=== PATIENT | female | born 1985 | race African-American/Black ===

== ENCOUNTER 2017-01-20 18:01 | Inpatient (IN) | payer OTHER ==
[~2017-01-20] VITALS: Ht 160 cm; Wt 59.0 kg
[~2017-01-20 18:01] MED LIST: ALPRAZOLAM2 M2 PO; ARIPIPRAZOLE5 M1; CYCLOBENZAPRINE10 M1 PO; DEXTROAMP-AMPHE30 MG PO; NASONEX17 GM NASB; SAPHRIS5 M1 SL; ZOLPIDEM TARTRA10 M1 PO
--- NOTE | 2017-01-20 18:32 | ED ANIMAL BITE/WOUND CHECK ---
History of Present Illness General Chief Complaint: Hand or Wrist Injury Stated Complaint: PT POSSIBLE CELLULITIS OF THE RT ARM Source: patient, family Exam Limitations: no limitations Vital Signs & Intake/Output Vital Signs & Intake/Output Vital Signs Date Time Temp Pulse Resp B/P B/P Pulse O2 O2 Flow FiO2 Mean Ox Delivery Rate 01/21 2128 97.8 95 18 132/91 97 Room Air 01/20 1858 98 Room Air 01/20 1813 98.1 88 22 99/62 98 Allergies Coded Allergies: doxycycline (SEVERE VOMITING 01/20/17) gluten (NAUSEA 01/20/17) Triage Note: PER PT BIT BY CAT, AT WORK, TUESDAY, BEEN ON ANTIBIOTICS, AUGMENTIN, SEEN AT URGENT CARE AND SENT HERE. RT HAND SWOLLEN RED.,SL WARM Triage Nurses Notes Reviewed? yes : No Patient currently breastfeeds: No HPI: Patient is a 31-year-old female presents complaining of an infection to the dorsal surface of her right hand. 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 Patient was placed on Augmentin Tuesday afternoon. Patient reports that pain, redness, swelling have increased since then. The cat is up-to-date with its rabies vaccinations. Patient received a tetanus immunization 2 days ago. Pain is moderate, worsens with palpation. Patient is right-hand dominant. Patient denies fevers, purulent drainage, axillary lymphadenopathy. (SHARLA MEADE,JESSICA) Reconcile Medications Alprazolam 2 MG TABLET 1 TAB PO TIDPRN PRN ANXIETY (Reported) Amoxicillin/Clavulanate Potass (Amox-Clav 875-125 MG Tablet) 875 MG-125 MG TABLET 1 TAB PO BID ANTIBIOTIC (Reported) Dextroamphetamine/Amphetamine (Dextroamp-Amphetamin 30 MG Tab) (Unknown Strength ) TABLET (Unknown Dose) UNKNOWN (Reported) Zolpidem Tartrate 10 MG TABLET 1 TAB PO QPM PRN SLEEP (Reported) (TAMMIE LEGER) Past History Travel History Traveled to [place] past 21 day No Medical History Any Pertinent Medical History? 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 No (JESSICA ROSS) Review of Systems Review of Systems Constitutional: Denies: chills, fever. EENTM: Reports: no symptoms. Respiratory: Denies: cough, short of breath. Cardiovascular: Denies: chest pain. GI: Denies: nausea, vomiting. Musculoskeletal: Reports: see HPI. Skin: Reports: see HPI. Neurological/Psychological: Denies: numbness, paresthesia. Hematologic/Endocrine: Denies: bruising, bleeding. Immunologic/Allergic: Denies: splenectomy. (JESSICA ROSS) Physical Exam Physical Exam General Appearance: well developed/nourished, alert, awake Head: atraumatic, normal appearance Eyes: Bilateral: normal appearance, PERRL, EOMI. Ears, Nose, Throat: normal pharynx, normal ENT inspection, hearing grossly normal Neck: normal inspection, supple, full range of motion Respiratory: normal breath sounds, chest non-tender, no respiratory distress, lungs clear Cardiovascular: regular rate/rhythm Peripheral Pulses: 2+ radial (R) Back: normal inspection, normal range of motion Extremities: 2 2-3 MILLIMETER PUNCTURE WOUNDS TO THE DORSAL SURFACE OF THE RIGHT HAND. eRYTHEMA, MODERATE SWELLING, WARMTH TO THE DORSAL SURFACE OF THE RIGHT HAND THAT EXTENDS JUST PROXIMAL TO THE WRIST. nO LYMPHANGITIS. fULL ACTIVE RANGE OF MOTION OF FINGERS AND HAND. sENSATION AND CAPILLARY REFILL NORMAL. Neurologic/Psych: no motor/sensory deficits, awake, alert, oriented x 3, normal gait, normal mood/affect Skin: SEE EXTREMITIES EXAM Lymphatic: NO PALPABLE AXILLARY ADENOPATHY (JESSICA ROSS) Progress Differential Diagnosis: abscess, cellulitis, tenosysnovitis, foreign body Plan of Care: Orders Procedure Date/time Status Regular Diet 01/21 B Active CBC WITHOUT DIFFERENTIAL 01/21 0600 Active Weight 01/20 2200 Active OXYGEN SETUP (GEN) 01/21 2128 Active Saline Lock 01/21 2128 Active Admit to inpatient 01/21 2128 Active Vital Signs 01/21 2128 Active Activity/Ambulation 01/21 2128 Active Pathway - chart 01/21 2120 Active House Staff 01/21 2120 Active Patient Data 01/21 2120 Active Code Status 01/21 2120 Active Patient Data 01/20 2039 Active Intake & Output 01/20 1843 Active BLOOD CULTURE 01/20 1837 Active LACTIC ACID 01/20 1837 Complete CBC WITHOUT DIFFERENTIAL 01/20 1837 Complete BASIC METABOLIC PANEL 01/20 1837 Complete VTE Mechanical Prophylaxis 01/20 UNK Active Current Medications Sig/Divya Start time Last Medication Dose Stop Time Status Admin Enoxaparin Sodium 40 MG DAILY 01/21 2112 AC (Lovenox) Laboratory Tests 01/20/172136: Lactic Acid Cancelled 01/20/171851: Anion Gap 13, Estimated GFR > 60, BUN/Creatinine Ratio 20.0, Glucose 85, Lactic Acid 0.6 L, Calcium 9.3, CBC w Diff NO MAN DIFF REQ, RBC 5.21, MCV 76.7 L, MCH 24.5 L, RDW 15.1 H, MPV 8.2, Gran % 66.2, Lymphocytes % 26.2, Monocytes % 6.9, Eosinophils % 0.7, Basophils % 0 L, Absolute Granulocytes 5.7, Absolute Lymphocytes 2.3, Absolute Monocytes 0.6, Absolute Eosinophils 0.1, Absolute Basophils 0, PUBS MCHC 31.9 L Microbiology 01/21 1856 BLOOD: Blood Culture - RECD 01/21 1852 BLOOD: Blood Culture - RECD Diagnostic Imaging: Viewed by Me: Radiology Read. Discussed w/RAD: Radiology Read. 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 Patient will require IV antibiotics. If symptoms don't improve consider plastics consultation. Patient will do poorly as an outpatient. Patient has worsening symptoms and pain and swelling. (TAMMIE LEGER) PA/FLOOR FINISHER Co-Sign Statement Statement: ED Attending supervision documentation- x I saw and evaluated the patient. I have also reviewed all the pertinent lab results and diagnostic results. I agree with the findings and the plan of care as documented in the PA's/FLOOR FINISHER's documentation. [] I have reviewed the ED Record and agree with the PA's/FLOOR FINISHER's documentation. [] Additions or exceptions (if any) to the PAs/FLOOR FINISHER's note and plan are summarized below: [] (KAUR SALMON,LORRIE)
[2017-01-20 19:05] LABS: ABSOLUTE BASOPHIL COUNT 0 /CUMM (0.0-0.2); ABSOLUTE EOSINOPHIL COUNT 0.1 /CUMM (0.0-0.7); ABSOLUTE GRANULOCYTE CT 5.7 /CUMM (1.4-6.5); ABSOLUTE LYMPH COUNT 2.3 /CUMM (1.2-3.4); ABSOLUTE MONOCYTE COUNT 0.6 /CUMM (0.10-0.60); BASOPHIL % 0 % (0.0-2.0); EOSINOPHIL % 0.7 % (0-5); GRANULOCYTE % 66.2 % (42.2-75.2); MEAN CORPUSCULAR HGB 24.5 PG (27.0-31.0); MEAN CORPUSCULAR HGB CONC 31.9 G/DL (33.0-37.0); MEAN CORPUSCULAR VOLUME 76.7 FL (81.0-99.0); MEAN PLATELET VOLUME 8.2 FL (7.4-10.4); PLATELET COUNT 197 /CUMM (130-400); RBC DISTRIBUTION WIDTH 15.1 % (11.5-14.5); RED BLOOD CELL CT 5.21 /CUMM (4.20-5.40); WHITE BLOOD CELL COUNT 8.7 /CUMM (4.8-10.8)
--- NOTE | 2017-01-20 19:10 | RADIOLOGY REPORT ---
EXAMINATION: XR HAND, RIGHT CLINICAL INFORMATION: Cat bite dorsal hand with cellulitis. COMPARISON: None TECHNIQUE: AP, lateral, and oblique views of the right hand. FINDINGS: Bone mineral density is maintained without evidence of fracture or dislocation. No focal osseous lesions are seen. Joint space is maintained without productive or erosive changes. There is dorsal soft tissue prominence without evidence of percutaneous emphysema or radiopaque foreign bodies. IMPRESSION: Soft tissue prominence otherwise unremarkable.
[2017-01-20] MEDS ORDERED: DEXTROAMP-AMPHE30 MG PO (20:07)
[2017-01-20] MEDS ORDERED: AMOX-CLAV 875-1 EACH PO (20:07)
[2017-01-20] MEDS ORDERED: ALPRAZOLAM2 M2 PO (20:08)
--- NOTE | 2017-01-20 20:30 | History & Physical ---
XOCHITL SALMON,ORTIZ 01/20/172028: General Information and HPI Source of Information: patient Exam Limitations: no limitations History of Present Illness: Ms. Abdalla is a healthy 31-year-old lady with PMH significant for asthma, depression/anxiety and previous substance abuse, last admitted for SI in February 2016, who presents with worsening erythema and swelling in the right hand. 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 Patient started taking Augmentin on that same day and has been taking it twice a day but the swelling and redness continued to worsen and extend from the hand up to the wrist, limiting the movement of her hand. She also endorses tenderness and paresthesia in the right hand up to the mid forearm. She pretented the urgen care clinic earlier today and was prompted to come into ER. Patient is up to date with all immunizations and received a Tdab booster at the urgent clinic 2 days ago. She also reports the cat is up to date with rabies vaccinations. On ROS patient reports one episode of watery diarrhea today and chills for 2 days. Also endorsing sore throat and diziness. No fevers. Denies any chest pain, dyspnea, palpitations, n/v/c, abdominal pain, urinary sxs. On SH patient is a current smoker (1/2 pack for 10 years). She currently denies any alcohol or illicit drug use but per the previous records from last year she does have a h/o polysubstance abuse. FH only remarkable for Parkinson's in father. In ED patient was started on IV Unasyn. PCP - Dr. Davies Full code. 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 Home Smoking Status: Current Everyday Smoker ETOH Use: denies use Illicit Drug Use: denies illicit drug use Review of Systems Review of Systems Constitutional: Reports: see HPI. Exam & Diagnostic Data Last 24 Hrs of Vital Signs/I&O Vital Signs Date Time Temp Pulse Resp B/P B/P Pulse O2 O2 Flow FiO2 Mean Ox Delivery Rate 01/20 1858 98 Room Air 01/20 181 98.1 88 22 99/62 98 Physical Exam General Appearance Alert, Oriented X3, Cooperative, No Acute Distress Skin 2-3mm puncture wounds in dorsal side of distal RUE with erythema, edema and warmth to touch. HEENT Atraumatic, PERRLA, EOMI, Mucous Membr. moist/pink Neck Supple, No JVD, No LAD Cardiovascular Regular Rate, Normal S1, Normal S2, No Murmurs, Gallops, Rubs Lungs Decreased breath sounds and wheezing Abdomen Normal Bowel Sounds, Soft, No Hepatospenomegaly Neurological Normal Gait, Normal Speech, Sensation Intact, Cranial Nerves 3-12 NL, Strength 3/5 in right fingers due to pain and swelling, Paresthesia in RUE from the hand to mid-forearm Extremities Puncture wound in the right hand with erythema, swelling and warmth , Limited ROM in right digits due to edema and ternderness Vascular Normal Pulses, Pulses Symmetrical Last 24 Hrs of Labs/Jordy: Laboratory Tests 01/20/171851: Anion Gap 13, Estimated GFR > 60, BUN/Creatinine Ratio 20.0, Glucose 85, Lactic Acid 0.6 L, Calcium 9.3, CBC w Diff NO MAN DIFF REQ, RBC 5.21, MCV 76.7 L, MCH 24.5 L, RDW 15.1 H, MPV 8.2, Gran % 66.2, Lymphocytes % 26.2, Monocytes % 6.9, Eosinophils % 0.7, Basophils % 0 L, Absolute Granulocytes 5.7, Absolute Lymphocytes 2.3, Absolute Monocytes 0.6, Absolute Eosinophils 0.1, Absolute Basophils 0, PUBS MCHC 31.9 L Microbiology 01/21 1856 BLOOD: Blood Culture - RECD 01/21 1852 BLOOD: Blood Culture - RECD Assessment/Plan Assessment: Ms. Abdalla is a healthy 31-year-old lady with no significant PMH, previously admitted for SI in February 2016, who presents with worsening erythema and swelling in the right hand, cocerning for cellulitis unresponsive to Augmentin. # Cellulitis in RUE * Admit to * Vitals per protocol * Cont IV Unasyn * Gentle IV hydration * Tylenol PRN for fever and mild pain # Asthma Although patient denies dyspnea there is significant wheezing diffusely on lung exam. * IV Solumedrol 125mg followed by prednisone taper tomorrow * TRC neb tx * Oxygen support as needed to maintain saturation > 92% * *Albuterol upon discharge* # Diarrhea * Check for c. diff * Immodium for persistent diarrhea # Tobacco depedence * Nicotine patch * Smoking cessation counseling # Depression/ADHD/insomnia * Cont Xanax, Adderall, and Zolpidem PRN at home doses - Regular diet - Mild pain pathway - DVTppx with Lovenox - Full code. As Ranked By This Provider Problem List: 1. Cellulitis of right hand Core Measures/Miscellaneous Acute Coronary Syndrome ACS Diagnosis: No Cerebrovascular Accident CVA/TIA Diagnosis: No Congestive Heart Failure CHF Diagnosis: No Venous Thromboembolism VTE Risk Factors: Smoking No Mech VTE prophylaxis d/t: No contraindications No VTE Pharm Prophylaxis d/t: No contraindications VTE Diagnosis: No VTE Type: NONE VTE Confirmed by (Test): NONE Severe Sepsis Severe Sepsis Present: No Septic Shock Septic Shock Present: No Miscellaneous Documentation Attending Case Discussed With: DR. SOOD Primary Care Physician: ADALI DAVIES MD Patient sees these Specialists PCP Level of Patient Care: General Medicine CHLOE WHITE 01/20/172041: General Information and HPI Allergies/Medications Home Med list Alprazolam 2 MG TABLET 1 TAB PO TIDPRN PRN ANXIETY (Reported) Amoxicillin/Clavulanate Potass (Amox-Clav 875-125 MG Tablet) 875 MG-125 MG TABLET 1 TAB PO BID ANTIBIOTIC (Reported) Dextroamphetamine/Amphetamine (Dextroamp-Amphetamin 30 MG Tab) (Unknown Strength ) TABLET 30 MG PO BID CONCENTRATION (Reported) Zolpidem Tartrate 10 MG TABLET 1 TAB PO QPM PRN SLEEP (Reported) Resident Review Statement Resident Statement: examined this patient, discussed with actuarial intern, agreed with actuarial intern Other Findings: Ms. Abdalla is a 31 year old female with no significant past medical history of exercise induced asthma who presents to the ED with complaints of right hand swelling and pain. 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 She states she went to urgent care outpt and was treated with augmentin PO. She has subsequently developed worsening swelling, a/w 1 day of chills and some surrounding paresthesias. Agree with YARITZA, SHx, FHx, and PE above. Labs reviewed. Problem List/Assessment and plan Cellulitis * Admit to for treatment of cellulitis failed outpt treatment of augmentin * We will start IV Unasyn for coverage of pasteurella mostly with added anaerobic coverage for bacteroides and fusobacteria at a dose of 1.5g q6h. * I dont believe there is an underlying abscess as there was no fluctuation on exam, however if her clinical presentation doesnt improve, consider a CT for further evaluation, and possible surgical consult for I/D. No subcutaneous emphysema noted on XR of the hand. No axillary/cervical LN enlargement noted. * Additionally, if the patient doesnt show clinical improvement, consideration for osteomyelitis, tenosynovitis and septic arthritis must be taken into accound , and an MRI should be ordered. * We will repeat CBC in the am to evaluate for leukocytosis Asthma and tobacco use * hx of exercise-induced asthma with a significant family history of asthma in her brother. * She also has a 67-[id number]-cyyx smoking history. * She was counseled extensively on smoking cessation * She will need proper pulmonology outpatient evaluation and medication. * We will give total respiratory care and nebulizers at the moment with a goal saturation of about 92%. * She was given IV Solu-Medrol, 125 mg in the emergency department. * We will dose with a rapid prednisone taper starting tomorrow morning, 40 mg followed by 30 mg followed by 20 mg and then 10. * Please ensure that the patient has a primary care referral as well as a pulmonology referral and a short acting beta agonist inhaler at the time of discharge. FULL CODE Regular diet pain path lovenox for dvt ppx BARRIE SALMON, [facility] 01/21/17 0251: Attending MD Review Statement Attending Statement Attending MD Statement: examined this patient, discuss w/resident/PA/EMPLOYMENT OFFICE CLERK, agreed w/resident/PA/EMPLOYMENT OFFICE CLERK Attending Assessment/Plan: 31 yo F smoker, with h/o exercise-induced asthma, anxiety, depression, previous polysubstance abuse, is here with right hand cellulitis after a cat bite and failing outpatient antibiotic therapy. 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 She was seen at an Urgent care center, started on Augmentin, but the swelling and erythema got worse so she came to the ER. She has also been suffering from sore throat, cough, URI symptoms for over 2 weeks, with associated dyspnea and wheezing. Patient reports being diagnosed with exercise-induced asthma at age of 15 and was given albuterol inhaler, but never really followed up with Field Pipe Lines Supervisor. She has had recent recurrent episodes of bronchitis for which she has been prescribed albuterol. Vitals stable except for borderline BP that has improved. Chest b/l prolonged expiratory wheezes with reduced air entry. No cervical or axillary lymphadenopathy. Right hand dorsum: puncture jaye from catbite with surrounding warmth, erythema and swelling extending upto the wrist and base of the fingers. ROM of fingers and wrist is slightly limited. Pulses well felt. Cat scratch adam noted to left hand and forearm. Labs unremarkable. X ray: dorsal soft tissue prominence, no foreign bodies. 1. Right hand catbite cellulitis, failed outpatient therapy. GM admit, elevate right hand, blood cultures, IV Unasyn. If swelling does not improve, will consider Plastic surgery eval. Neurovascular checks. Tetanus vaccine given. 2. Asthma exacerbation in the setting of acute bronchitis. TRC nebs, IV solumedrol given in ER, will initiate rapid prednisone taper from AM. Peak flow measurements. Mucinex BID. Smoking cessation counseling done. Nicotine patch. Please ensure patient is discharged with an albuterol inhaler prescription. DVT ppx Lovenox. Full code.
[2017-01-20 23:15] VITALS: BP 130/90
--- NOTE | 2017-01-21 02:53 | Admission Certification ---
Admission Certification Certification Statement - As attending physician, I certify that at the time of - admission, based on clinical presentation, severity of - symptoms, need for further diagnostic testing and - therapeutic interventions, and risk of adverse outcomes - without in-hospital treatment, in my clinical assessment, - this patient requires an acute hospital stay for a minimum - of two nights or longer. I have also considered psychsocial - factors such as support system, advanced age, financial - issues, cognitive issues, and failed out-patient treatments, - past re-admission history, safety of patient, and lack of - compliance as applicable. Specific rationale supporting this admission is: Right hand cellulitis s/p cat bite, failed outpatient therapy. Asthma exacerbation.
[2017-01-21 06:30] VITALS: BP 116/60
--- NOTE | 2017-01-21 06:52 | PN- Housestaff ---
SHELIA SALMON,PERI 01/21/17 0651: Subjective Follow-up For: cellulitis Subjective: Pt was seen this morning after having received about 3 doses of unasyn. she reports feeling a lot better and her right hand looks one thousand times better. she would like to go home if possible. there was still some swelling and redness over the dorsum of the right hand, plastic surgery has been contacted to see the patient prior to discharge. she reports some numbness and tingling, that is improved. yesterday it was affecting up to her right elbow, early this morning, it only involved dorsum of the right hand, then later in the morning, she reports it on the 4th and 5th finger. she has chronic cough with tao sputum that has been going on for 2-3 weeks. prior to that, she has had dry cough. she knows that she should stop smoking and is working on it. she has been afebrile with no white count. if she is cleared by plastic surgery, she might be discharged today on clindamycin. Review of Systems Constitutional: Reports: see HPI. Objective Last 24 Hrs of Vital Signs/I&O Vital Signs Date Time Temp Pulse Resp B/P B/P Pulse O2 O2 Flow FiO2 Mean Ox Delivery Rate 01/21 1105 Room Air Room Air 01/21 0800 Room Air 01/21 0630 98.4 67 20 116/60 97 Room Air 01/21 0000 Room Air 01/20 2315 98.2 71 18 130/90 95 Room Air 01/20 2244 Room Air 01/20 2128 97.8 95 18 132/91 97 Room Air 01/20 1858 98 Room Air 01/20 1813 98.1 88 22 99/62 98 Intake & Output 01/21 1600 01/21 0800 01/21 0000 Intake Total 500 Output Total Balance 500 Intake, IV 200 Intake, Oral 300 Patient 58.967 kg Weight Weight Reported by Patient Measurement Method Physical Exam General Appearance: Alert, Oriented X3, Cooperative, No Acute Distress Skin: redness and swelling over dorsum of the right hand HEENT: Atraumatic Cardiovascular: Regular Rate, Normal S1, Normal S2, No Murmurs Lungs: Clear to Auscultation, Normal Air Movement Abdomen: Normal Bowel Sounds, Soft, No Tenderness Neurological: Normal Speech Extremities: able to make a soft fist (improved since yesterday) Current Medications: Current Medications Sig/Divya Start time Last Medication Dose Route Stop Time Status Admin Acetaminophen 650 MG Q6P PRN 01/21 0015 AC PO Acetaminophen 1,000 MG Q6P PRN 01/21 0015 AC IV Albuterol Sulfate 2 PUF Q4P PRN 01/21 1130 AC INH Alprazolam 2 MG TID PRN 01/21 0015 AC 01/21 PO 01/28 0014 0839 Ampicillin Sodium/ 1,500 MG Q6 01/21 0009 AC 01/21 Sulbactam Sodium IV 1118 Sodium Chloride 100 ML Ampicillin Sodium/ 0 .STK-MED ONE 01/20 1859 DC Sulbactam Sodium .ROUTE Ampicillin Sodium/ 3,000 MG ONCE ONE 01/20 1845 DC 01/20 Sulbactam Sodium IV 01/20 1914 1917 Sodium Chloride 100 ML Enoxaparin Sodium 40 MG DAILY 01/20 2112 AC 01/21 SC 0832 Guaifenesin 600 MG Q12 01/21 1000 AC 01/21 PO 0833 Lactobacillus 1 CAP BID 01/21 1030 AC Acidophilus PO Methylphenidate HCl 15 MG TID 01/21 1000 AC 01/21 PO 0833 Methylprednisolone 0 .STK-MED ONE 01/20 2206 DC .ROUTE Methylprednisolone 125 MG ONCE ONE 01/20 2200 DC 01/20 IV 01/20 2201 2206 Nicotine 14 MG DAILY 01/21 1000 AC 01/21 TOP 0833 Nicotine 7 MG DAILY 01/21 0200 DC 01/21 TOP 0235 Oxycodone HCl 5 MG Q6P PRN 01/21 0015 AC PO Prednisone 10 MG DAILY 01/24 1000 AC PO 01/24 1001 Prednisone 20 MG DAILY 01/23 1000 AC PO 01/23 1001 Prednisone 30 MG DAILY 01/22 1000 AC PO 01/22 1001 Prednisone 40 MG DAILY 01/21 1000 DC 01/21 PO 01/21 1001 0833 Zolpidem Tartrate 10 MG QPM PRN 01/21 0015 AC PO Last 24 Hrs of Lab/Jordy Results Last 24 Hrs of Labs/Mics: Laboratory Tests 01/21/17 0642: CBC w Diff NO MAN DIFF REQ, RBC 5.21, MCV 77.0 L, MCH 25.0 L, RDW 15.4 H, MPV 8.7, Gran % 86.9 H, Lymphocytes % 12.0 L, Monocytes % 1.1 L, Eosinophils % 0, Basophils % 0 L, Absolute Granulocytes 6.1, Absolute Lymphocytes 0.8 L, Absolute Monocytes 0.1 L, Absolute Eosinophils 0, Absolute Basophils 0, PUBS MCHC 32.5 L 01/20/172136: Lactic Acid Cancelled 01/20/171851: Anion Gap 13, Estimated GFR > 60, BUN/Creatinine Ratio 20.0, Glucose 85, Lactic Acid 0.6 L, Calcium 9.3, CBC w Diff NO MAN DIFF REQ, RBC 5.21, MCV 76.7 L, MCH 24.5 L, RDW 15.1 H, MPV 8.2, Gran % 66.2, Lymphocytes % 26.2, Monocytes % 6.9, Eosinophils % 0.7, Basophils % 0 L, Absolute Granulocytes 5.7, Absolute Lymphocytes 2.3, Absolute Monocytes 0.6, Absolute Eosinophils 0.1, Absolute Basophils 0, PUBS MCHC 31.9 L Microbiology 01/21 1028 STOOL: Clostridium difficile Toxin A & B - ORD 01/21 1856 BLOOD: Blood Culture - RECD 01/21 1852 BLOOD: Blood Culture - RECD Assessment/Plan Assessment: Ms. Abdalla is a healthy 31-year-old lady with PMH of asthma, previously admitted for SI in February 2016, who presents with worsening erythema, swelling, numbness, and tingling in the right hand after a cat bite on 01/18/17, concerning for cellulitis, unresponsive to OP Augmentin. # Cellulitis in RUE * Admit to [facility] * Vitals per protocol * Cont IV Unasyn, plan to dc on clindamycin + lactobacillus * Tylenol PRN for fever and mild pain. * Appreciate plastic surgery input # Asthma - Although patient denies dyspnea there is significant wheezing diffusely on lung exam on admission * IV Solumedrol 125mg X 1 given, on quick prednisone taper * TRC neb tx * Oxygen support as needed to maintain saturation > 92% * *Albuterol upon discharge* # Diarrhea * Check for c. diff * Immodium for persistent diarrhea # Tobacco depedence - Smoke 0.5 ppd. Motivated to quit smoking. - Smoking cessation counseling done * Nicotine patch # Depression/ADHD/insomnia * Cont Xanax, Adderall, and Zolpidem PRN at home doses - Regular diet - Mild pain pathway - DVTppx with Lovenox - Full code Problem List: 1. Cellulitis of right hand Pain Ratin Pain Location: none Pain Goal: Remain pain free Pain Plan: tylenol Tomorrow's Labs & Rationales: none DVT/Prophylaxis: mechanical, pharmacological TROY QUICK 01/21/17 1049: Attending MD Review Statement Attending Statement Attending MD Statement: examined this patient, discuss w/resident/PA/CUSTODIAL SERVICES MANAGER, agreed w/resident/PA/CUSTODIAL SERVICES MANAGER, discussed with family, reviewed EMR data (avail), discussed with nursing, discussed with case mgmt, reviewed images, amended to note Attending Assessment/Plan: 31 o/f with right hand cellulitis, cat bite 3 days ago comes with swelling and redness. Patient clinically improved and wants to go home. Patient will be discharged on PO abx. f/u o/p PCP in 3-5 days of d/c.
[2017-01-21] MEDS ORDERED: AUGMENTIN 875-1 EACH PO (07:50)
[2017-01-21] MEDS ORDERED: PROAIR HFA8.5 GM INH (07:51)
--- NOTE | 2017-01-21 07:53 | Patient Discharge Instructions ---
Discharge Instructions General Discharge Information You were seen/treated for: CELLULITIS Special Instructions: PLEASE F/U WITH YOUR PCP IN 1 WEEK please complee the abx course Acute Coronary Syndrome Inclusion Criteria At DC or during hospital stay patient has or had the following: ACS DIAGNOSIS No Discharge Core Measures Meds if any: Prescribed or Continued at Discharge Meds if any: NOT Prescribed or Continued at Discharge Congestive Heart Failure Inclusion Criteria At DC or during hospital stay patient has or had the following: CHF DIAGNOSIS No Discharge Core Measures Meds if any: Prescribed or Continued at Discharge Meds if any: NOT Prescribed or Continued at Discharge Cerebrovascular accident Inclusion Criteria At DC or during hospital stay patient has or had the following: CVA/TIA Diagnosis No Discharge Core Measures Meds if any: Prescribed or Continued at Discharge Meds if any: NOT Prescribed or Continued at Discharge Venous thromboembolism Inclusion Criteria VTE Diagnosis No VTE Type NONE VTE Confirmed by (Test) NONE Discharge Core Measures - Per Current guidelines, there needs to be overlap - treatment for the first 5 days of Warfarin therapy. - If discharged on Warfarin prior to 5 days of - overlap therapy, the patient will need to be - assessed for post discharge needs including - *Post discharge parental anticoagulation - *Warfarin and/or parental anticoagulation education - *Follow up date to check INR post discharge At least 5 days overlap therapy as Inpatient No Meds if any: Prescribed or Continued at Discharge Note: Overlap Therapy is Warfarin and Anticoagulant Meds if any: NOT Prescribed or Continued at Discharge
[2017-01-21 08:17] LABS: ABSOLUTE BASOPHIL COUNT 0 /CUMM (0.0-0.2); ABSOLUTE EOSINOPHIL COUNT 0 /CUMM (0.0-0.7); ABSOLUTE GRANULOCYTE CT 6.1 /CUMM (1.4-6.5); ABSOLUTE LYMPH COUNT 0.8 /CUMM (1.2-3.4); ABSOLUTE MONOCYTE COUNT 0.1 /CUMM (0.10-0.60); BASOPHIL % 0 % (0.0-2.0); EOSINOPHIL % 0 % (0-5); HEMATOCRIT 40.1 % (37-47); MEAN CORPUSCULAR HGB CONC 32.5 G/DL (33.0-37.0); MEAN PLATELET VOLUME 8.7 FL (7.4-10.4); PLATELET COUNT 190 /CUMM (130-400); RBC DISTRIBUTION WIDTH 15.4 % (11.5-14.5); RED BLOOD CELL CT 5.21 /CUMM (4.20-5.40)
[2017-01-21] MEDS ORDERED: PREDNISONE10 M2 PO (08:24)
[2017-01-21 08:58] LABS: GRANULOCYTE % 86.9 % (42.2-75.2)
[2017-01-21] MEDS ORDERED: PROBIOTIC1 EAC1 PO (10:21)
[2017-01-21] MEDS ORDERED: CLEOCIN HCL300 M1 PO (10:21)
--- NOTE | 2017-01-21 11:22 | Discharge Summary ---
Visit Information Visit Dates Admission Date: 01/20/17 Discharge Date: 01/21/17 Hospital Course Course Attending Physician: ABDELRAHMAN SALMON,TROY Primary Care Physician: ADALI PAGAN MD Hospital Course: Ms. Abdalla is a 31-year-old lady with PMH of asthma, anxiety/depression, previously admitted for SI in February 2016, who presents with worsening erythema, swelling, numbness, and tingling in the right hand after a cat bite on 01/18/17, concerning for cellulitis, unresponsive to OP Augmentin. # Cellulitis in RUE - Improved with 3 doses of IV unasyn inpatient, discharged on clindamycin + lactobacillus - Plastic surgery consulted and recommend no further intervention other than close monitoring and present back to ED for new or worsening symptoms. # Asthma - Although patient denies dyspnea there is significant wheezing diffusely on lung exam on admission - IV Solumedrol 125mg X 1 given, discharged on quick prednisone taper - Albuterol prescribed at discharge # Diarrhea - No sample obtained for c dif # Tobacco depedence - Smoke 0.5 ppd. Motivated to quit smoking. - Smoking cessation counseling done # Depression/ADHD/insomnia - Continue Xanax, Adderall, and Zolpidem PRN at home doses - Regular diet - Mild pain pathway - DVTppx with Lovenox - Full code Allergies: Coded Allergies: doxycycline (SEVERE VOMITING 01/20/17) gluten (NAUSEA 01/20/17) Disposition Summary Disposition Principal Diagnosis: Cellulitis Additional Diagnosis: Asthma Discharge Disposition: home or self care Discharge Instructions General Discharge Information Code Status: Full Code Patient's Diet: Regular Patient's Activity: As tolerated Follow-Up Instructions/Appts: F/U with PCP in 2-3 days Medications at Discharge Discharge Medications: Stop taking the following medications: Amoxicillin/Clavulanate Potass (Amox-Clav 875-125 MG Tablet) 875 MG-125 MG TABLET ORAL TWICE DAILY Qty = 20 Continue taking these medications: Zolpidem Tartrate (Zolpidem Tartrate) 10 MG TABLET 1 Tablet ORAL Every night as needed for SLEEP Qty = 30 Comments: PER PT Dextroamphetamine/Amphetamine (Dextroamp-Amphetamin 30 MG Tab) (Unknown Strength ) TABLET 30 Milligram ORAL TWICE DAILY Qty = 60 Alprazolam (Alprazolam) 2 MG TABLET 1 Tablet ORAL THREE TIMES A DAY NEEDED as needed for ANXIETY Qty = 90 Comments: Last Taken: 01/21/17 Time: 0800 AM Start taking the following new medications: Albuterol Sulfate (Proair Hfa) 90 MCG HFA.AER.AD 2 Puff Inhale through mouth EVERY 4-6 HOURS NEEDED as needed for ASTHMA Qty = 1 No Refills Prednisone (Prednisone) 10 MG TABLET 1 Tablet ORAL SEE INSTRUCTIONS Qty = 20 No Refills Instructions: TAKE 30 MG ON 01/22 TAKE 20 MG ON 01/23 TAKE 10 MG ON 01/24 THEN STOP Comments: Last Taken: 01/21/17 Time: 08:00 AM Clindamycin HCl (Cleocin HCl) 300 MG CAPSULE 450 Milligram ORAL EVERY SIX HOURS Qty = 6 No Refills Lactobacillus Combination No.4 (Probiotic) 3 BILLION CELL CAPSULE 1 Tablet ORAL DAILY as needed for DIARRHEA Qty = 30 No Refills Comments: Last Taken: 01/21/17 Time: 3:00 PM Copies To: EJ SALMON,ADALI Trevino Attending MD Review Statement Documenting Attending: TROY QUICK MD
[2017-01-21 14:02] VITALS: BP 112/80
--- NOTE | 2017-01-21 14:44 | Cons- Plastic Surgery ---
General Information and HPI Consulting Request Date of Consult: 01/21/17 Requested By: TROY QUICK MD Reason for Consult: Dominant hand cat bite Source of Information: patient Exam Limitations: no limitations History of Present Illness: Patient was at her place of work where she was bit by a cat earlier this week. She was seen later in the day put on Augmentin via an outpatient facility. She noticed increased pain and swelling and numbness in the area of injury and presented to the hospital for evaluation. She was sent with rapid improvement. She has no significant complaints today regarding the hand other than questionable decreased gross sensibility on the dorsum in the area of injury. Allergies/Medications Allergies: Coded Allergies: doxycycline (SEVERE VOMITING 01/20/17) gluten (NAUSEA 01/20/17) Home Med List: Albuterol Sulfate (Proair Hfa) 90 MCG HFA.AER.AD 2 PUF INH Q4-6 PRN PRN ASTHMA Alprazolam 2 MG TABLET 1 TAB PO TIDPRN PRN ANXIETY (Reported) Amoxicillin/Clavulanate Potass (Amox-Clav 875-125 MG Tablet) 875 MG-125 MG TABLET 1 TAB PO BID ANTIBIOTIC (Reported) Clindamycin HCl (Cleocin HCl) 300 MG CAPSULE 450 MG PO Q6 CELLULITIS Dextroamphetamine/Amphetamine (Dextroamp-Amphetamin 30 MG Tab) (Unknown Strength ) TABLET 30 MG PO BID CONCENTRATION (Reported) Lactobacillus Combination No.4 (Probiotic) 3 BILLION CELL CAPSULE 1 TAB PO DAILY PRN DIARRHEA Prednisone 10 MG TABLET 1 TAB PO SEE ADMIN CRITERIA ASTHMA TAKE 30 MG ON 01/22 TAKE 20 MG ON 01/23 TAKE 10 MG ON 01/24 THEN STOP Zolpidem Tartrate 10 MG TABLET 1 TAB PO QPM PRN SLEEP (Reported) Past History Medical History Neurological: NONE EENT: NONE Cardiovascular: NONE Respiratory: asthma Gastrointestinal: NONE Hepatic: NONE Renal: NONE Musculoskeletal: NONE Psychiatric: anxiety, depression, opioid dependence Endocrine: NONE Blood Disorders: NONE Cancer(s): NONE NIGHT COURT MAGISTRATE/Reproductive: NONE Surgical History Pertinent Surgical History: non-contributory Family History Relations & Conditions If Any: FATHER FH: Parkinson's disease Psychosocial History Where Do You Live? Home Smoking Status: Current Everyday Smoker ETOH Use: denies use Illicit Drug Use: denies illicit drug use Review of Systems Review of Systems: All of the systems negative Exam & Diagnostic Data Vital Signs and I&O Vital Signs Date Time Temp Pulse Resp B/P B/P Pulse O2 O2 Flow FiO2 Mean Ox Delivery Rate 01/21 1402 97.8 73 18 112/80 95 Room Air 01/21 1105 Room Air Room Air 01/21 0800 Room Air 01/21 0630 98.4 67 20 116/60 97 Room Air 01/21 0000 Room Air 01/20 2315 98.2 71 18 130/90 95 Room Air 01/20 2244 Room Air 01/20 2128 97.8 95 18 132/91 97 Room Air 01/20 1858 98 Room Air 01/20 1813 98.1 88 22 99/62 98 Intake & Output 01/21 1600 01/21 0800 01/21 0000 01/20 1600 01/20 0800 01/20 0000 Intake Total 500 500 Output Total Balance 500 500 Intake, IV 200 Intake, Oral 500 300 Patient 130 lb Weight Weight Reported by Patient Measurement Method Physical Exam: Physical exam of the right upper extremity shows the following: There are 2 superficial small puncture sites on the dorsum of the hand without erythema crepitance edema or drainage, they are essentially closed. There is full range of motion, neurovascularly intact. X-ray negative for foreign bodies Assessment/Plan Assessment/Plan Status post cat bite of the right hand with cellulitis which is now markedly improved. He shouldn't likely to require no further intervention. Patient advised to continue observation of the hand or return if the new oral antibiotic clindamycin does not provide continued improvement Consult Acknowledgment - Thank you for your consult request.
[2017-01-22] MEDS ORDERED: CLEOCIN HCL300 M1 PO (08:41)
== END 2017-01-21 15:15 | DRG 603 ==
LOC: ERH 18:01 → 2NA 21:28 → ERHI 21:28 → ENRESERV 21:42 → 2NA 22:30 → ENPENDDIS 01-21 15:07 → 2NA 01-21 15:15
PROVIDERS: Internal Medicine Cardiovascular Disease; Physician Assistant; ADMIT Student in an Organized Health Care Education/Training Program
DX: L03.113 Cellulitis of right upper limb (principal); J45.901 Unspecified asthma with (acute) exacerbation; F17.210 Nicotine dependence, cigarettes, uncomplicated; F32.9 Major depressive disorder, single episode, unspecified; J20.9 Acute bronchitis, unspecified; R19.7 Diarrhea, unspecified; F90.9 Attention-deficit hyperactivity disorder, unspecified type; F41.9 Anxiety disorder, unspecified
CPT/HCPCS: 2NASP; 73130-RT; 87040; 96365; J0131; J1650; J2930; J3490; J7512